=== PATIENT | female | born 1990 | race Caucasian/White ===

== ENCOUNTER 2016-06-02 00:31 | Emergency (ER) | payer OTHER ==
[~2016-06-02] VITALS: Ht 170.2 cm; Wt 63.5 kg
[2016-06-02] MEDS ORDERED: CLEOCIN300 MG PO (01:09)
[2016-06-02] MEDS ORDERED: NAPROSYN500 MG PO (01:09)
[2016-06-02 01:15] VITALS: BP 115/74
== END 2016-06-02 01:22 | disposition home or self-care (01) ==
LOC: EME 00:31
DX: K04.7 Periapical abscess without sinus (principal); F17.200 Nicotine dependence, unspecified, uncomplicated
CPT/HCPCS: 99281; 99283